=== PATIENT | male | born 1965 | race African-American/Black ===

== ENCOUNTER → 2024-01-27 | Outpatient (CLI) | payer OTHER ==
[~2024-01-27] MED LIST: Albuterol 0.083% Neb Soln 2.5 MG/3 ML UD IH ONE
== END ==
LOC: COL.CARD 09:36
DX: J45.909 Unspecified asthma, uncomplicated (principal)

== ENCOUNTER → 2024-03-22 | Outpatient (CLI) | payer OTHER | LOC: COL.VAS 08:23 | DX: I08.3 Combined rheumatic disorders of mitral, aortic and tricuspid valves (principal); J90 Pleural effusion, not elsewhere classified; J45.40 Moderate persistent asthma, uncomplicated ==